=== PATIENT | female | born 1945 | race Two or more races ===

== ENCOUNTER 2022-02-02 08:45 | Inpatient (IN) | payer OTHER ==
[~2022-02-02] VITALS: Ht 152.4 cm; Wt 52.6 kg
[~2022-02-02 08:45] MED LIST: COZAAR50 MG PO; LIPIT PO
== END 2022-02-10 13:55 | disposition home or self-care (01) | DRG 330 ==
LOC: SURG 02-07 05:31 → O/R 02-07 05:31 → SURH 02-07 08:45 → SURG 02-07 11:00
PROVIDERS: ADMIT Colon & Rectal Surgery; ATTEND Colon & Rectal Surgery
PROC: 0DBP4ZZ Excision of Rectum, Percutaneous Endoscopic Approach (ICD-10-PCS; 2022-02-07)
PROC: 0WQF4ZZ Repair Abdominal Wall, Percutaneous Endoscopic Approach (ICD-10-PCS; 2022-02-07)
PROC: 0DBE4ZZ Excision of Large Intestine, Percutaneous Endoscopic Approach (ICD-10-PCS; 2022-02-07)
PROC: 0DTN4ZZ Resection of Sigmoid Colon, Percutaneous Endoscopic Approach (ICD-10-PCS; principal; 2022-02-07 08:45)
DX: K57.20 Diverticulitis of large intestine with perforation and abscess without bleeding (principal); K92.1 Melena; K43.2 Incisional hernia without obstruction or gangrene; Z43.3 Encounter for attention to colostomy; R59.0 Localized enlarged lymph nodes; I10 Essential (primary) hypertension; E78.49 Other hyperlipidemia; Z20.822 Contact with and (suspected) exposure to COVID-19